=== PATIENT | male | born 1960 | race Caucasian/White ===

== ENCOUNTER 2018-08-12 11:13 | Emergency (ER) | payer OTHER, SELFPAY ==
[2018-08-12 11:18] VITALS: BP 138/83; PULSE 52; RESP 16; TEMP 36.6; O2SAT 95
--- NOTE | 2018-08-12 11:28 | DI.RAD_ITS ---
SYMPTOM/DIAGNOSIS: POSSIBLE CHICKEN BONE IN THROAT, PAIN SOFT TISSUE NECK: Two views were obtained. The tracheal laryngeal air column is unremarkable. A tiny curvilinear calcification is noted at the level of the thyroid cartilage and was seen on CT to in fact represent cartilaginous calcification. No foreign body identified.
--- NOTE | 2018-08-12 11:39 | ED.GENADUL_ITS ---
Discharge Plan Disposition Patient Disposition: HOME Condition: Stable Discharge Details Chief Complaint: ThroatFB Clinical Impression: History of swallowed foreign body Primary Care Provider: Shikha,Local ED Provider: Tiffani Schreiber Home Meds and New Rx's Prescriptions: Continued atorvastatin 10 mg Tablet 10 mg PO DAILY RF: 0 Discharge Instructions Instructions: Foreign Body Ingestion (ED), Neck Pain (ED) Additional Instructions: Avoid hot fluids and foods for the next few days while symptoms still present. Follow a diet of soft and cool fluids and foods for the next few days while symptoms still present. Alternate Tylenol and Motrin as needed and directed for pain. Follow-up with your primary care doctor next week for reevaluation as needed. Return immediately to the emergency department if you develop any worsening or new concerning symptoms. Discharge Data Discharge Date/Time-TO BE ENTERED AT DEPARTURE: 08/12/18 14:10 Discharge Physician: Tiffani Schreiber Medical Decision Making 57yo M w/ c/o chicken bone lodged in throat since last night. Ate breakfast this am and felt it dislodged to R side but still with pain mainly on L side. No fever, vomiting, chest pain, sob, or abdominal pain. Vitals within normal limits. Patient appears nontoxic. He is speaking in full sentences. No signs of airway compromise. He is swallowing his own secretions. No foreign body noted in posterior pharynx. No tenderness to palpation of neck. Abdomen soft and nontender. We will send for neck soft tissue x-ray, give a dose of ibuprofen and try carbonated beverage. If no relief can try effervescent granules and if needed will discuss with surgery. 1250 --soft tissue x-ray neck notes a 7 mm linear density projecting over posterior aspect of the thyroid cartilage could be physiologic calcification but foreign body cannot be excluded. Discussed with surgery, agrees with plan for CT neck for further evaluation. 1340 --CT negative for any foreign body. Patient states pain is resolving. Discussed that this could have been possibly a scratch or irritation due to food causing inflammation and pain. Patient has been reading a magazine and appears in no acute distress. Patient feels good to go home at this time. He is instructed to alternate Tylenol and Motrin, and refrain from hot fluids or foods for the next few days and mainly follow a diet of cool liquids and soft foods over the next few days while symptoms still present. He is instructed to follow-up with a primary care doctor for reevaluation and to return anytime if worse. Imaging Data Radiologic Study: Radiologist's impression: XR Soft Tissue Neck EXAM DATE/TIME: 08/12/2018 11:31 AM CLINICAL HISTORY: 57 years old, male; Other: Possible chicken bone stuck in throat; Additional info: Pain in L side of throat TECHNIQUE: Imaging protocol: XR of the soft tissues of the neck. COMPARISON: No relevant prior studies available. FINDINGS: Airway: Normal. No abnormal narrowing. Soft tissues: The lateral view demonstrates a 7 mm linear density in the soft tissues projecting over the posterior aspect of the thyroid cartilage at the level of the inferior endplate of C5. The hyoid bone is unremarkable. The epiglottis is normal in configuration.The prevertebral soft tissues are normal. Bones/joints: Normal for age. IMPRESSION: 1. 7 mm linear density projecting over the posterior aspect of the thyroid cartilage. Although this could represent a physiologic calcification at the level of the larynx, a linear foreign body is not excludable. 2. Soft tissues are otherwise unremarkable. Remainder of non-emergent findings as described above. CT Neck Without Contrast EXAM DATE/TIME: 08/12/2018 1:00 PM CLINICAL HISTORY: 57 years old, male; Other: Foreign body in nec; Patient HX: Swallowed chicken bone, pain left neck TECHNIQUE: Imaging protocol: Axial computed tomography images of the neck without contrast. Coronal and sagittal reformatted images were created and reviewed. Radiation optimization: All CT scans at this facility use at least one of these dose optimization techniques: automated exposure control; mA and/or kV adjustment per patient size (includes targeted exams where dose is matched to clinical indication); or iterative reconstruction. COMPARISON: [place] XR soft tissue neck 08/12/2018 11:59 AM FINDINGS: Nasopharynx: Normal. Oropharynx: Normal. No significant tonsillar enlargement. Hypopharynx: Normal. Larynx: No evidence of a radiopaque foreign body. There is mild asymmetry in the ossification of the arytenoid cartilages with slight increased calcification in the left arytenoid in comparison to the right (34/3, 17/5, 26/6). The linear opacity seen in the x-ray corresponds to cortical calcification in the left thyroid cartilage. Retropharyngeal space: Normal. Submandibular/Parotid glands: Normal. Glands are normal in size. Thyroid: Normal. No enlarged or calcified nodules. Lymph nodes: Normal. No lymphadenopathy. Trachea: Visualized trachea is unremarkable. Esophagus: The visualized esophagus is unremarkable. Lungs: Normal as visualized. Bones/joints: No acute fracture. 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 Soft tissues: There is no evidence of a radiopaque foreign body. IMPRESSION: No evidence of a radiopaque foreign body. The linear opacity seen in the soft tissue neck x-ray corresponds to cortical calcification in the left thyroid cartilage. Remainder of non-emergent findings as described above. HPI General Mode of arrival: ambulatory . Date/Time Provider Initiated Documentation: 08/12/18 11:18 . Limitations to Documentation: no limitations . Information obtained by: patient . HPI Narrative: Pt is a 57yo M who presents to the ED w/ a c/o pain in throat and neck since he thinks he swallowed a chicken bone last night. Pt states this morning he was able to eat an egg frittata and thinks that the pain has moved from the left side of his throat to the right side. He states the pain on the right side has since resolved but still has pain in the left side which is worse with swallowing. States he is concerned about retained chicken bone. He denies any fever, vomiting, chest pain, shortness of breath or abdominal pain. Related Data Home Medications Medication Instructions Recorded Confirmed atorvastatin 10 mg PO DAILY 08/12/18 08/12/18 Allergies Allergy/AdvReac Type Severity Reaction Status Date / Time No Known Allergies Allergy Unverified 08/12/18 11:21 General Stated Complaint: ThroatFB JORGE A: 2 Review of Systems Review of Systems All systems reviewed & are unremarkable except as noted in HPI and below Constitutional Reports as per HPI, Denies chills and Denies fever(s) Eyes Denies blurry vision ENT Denies dizziness, Reports neck pain, Denies sore throat and Denies throat swelling Cardiovascular Denies chest pain and Denies dyspnea Respiratory Denies cough and Denies dyspnea Gastrointestinal Denies abdominal pain, Denies diarrhea and Denies vomiting Genitourinary Denies hematuria and Denies dysuria Musculoskeletal Denies back pain, Reports neck pain and Denies numbness Integumentary/Breasts Denies lesions and Denies rash Neurologic Denies dizziness, Denies focal weakness and Denies numbness Allergic/Immunologic Denies throat swelling FOR[facility]LY [facility], [facility] Medical History Cold-induced asthma (Acute) Hx of hyperlipidemia (Acute) Surgical History H/O thumb surgery (Acute) S/P left knee surgery (Acute) History of tonsillectomy (Chronic) Social History Smoking/Tobacco Use Status: Never Alcohol Intake: current Alcohol Intake frequency: a few times a month Drug use: Never Do you feel safe at home: Yes Do you feel safe in your relationship?: Yes Exam Const General: cooperative, healthy appearing, comfortable and no acute distress HENMT Head: normal to inspection Ears: hearing grossly normal bilaterally, external ears normal and TM's normal bilaterally General nose exam: external nose normal Face and sinus: normal facial exam Mouth: oral mucosae normal Teeth and gingiva: dentition normal Throat: posterior oropharynx normal, tonsils normal, uvula midline and no peritonsillar masses Eyes General: appearance normal, both eyes and all related structures Pupils: PERRL EOM: EOM intact bilaterally Neck Neck: normal visual inspection, trachea midline, supple, no anterior neck swelling, no midline deformity, nontender and No submandibular swelling Lymphatic: no lymphadenopathy noted Chest Chest: normal inspection of the chest and no tenderness Resp Effort & Inspection: normal respiratory effort and able to speak in complete sentences Auscultation: clear to auscultation bilaterally Cardio Rate: regular rate Rhythm: regular rhythm GI Inspection: normal to inspection Palpation: soft, not firm, not rigid and nontender Auscultation: normal bowel sounds Skin General skin exam: no rashes or lesions noted Neuro General: alert, awake and oriented x3 Cognition: normal cognition Speech: speech normal Motor: muscle tone normal throughout Sensory Exam: no sensory deficits noted Extrem General: normal to inspection, full ROM, normal capillary refill, no calf tenderness bilaterally and no edema Psych Appearance: grossly normal Mental Status: mental status grossly normal Speech and Movement: speech and movement normal Affect: normal affect Course Vital Signs Temperature 97.9 F 08/12/18 11:18 Pulse 52 L 08/12/18 11:18 Respiratory Rate 16 08/12/18 11:18 Blood Pressure 138/83 08/12/18 11:18 Pulse Oximetry 95 08/12/18 11:18 Temperature 97.9 F 08/12/18 11:18 Temperature Source Temporal Artery Scan 08/12/18 11:18 Pulse 52 L 08/12/18 11:18 Respiratory Rate 16 08/12/18 11:18 Respiratory Effort Non-Labored 08/12/18 11:24 Respiratory Pattern Normal 08/12/18 11:24 Blood Pressure 138/83 08/12/18 11:18 Blood Pressure Position Sitting 08/12/18 11:18 Pulse Oximetry 95 08/12/18 11:18 Oxygen Delivery Method Room Air 08/12/18 11:18 Oxygen Flow Rate 0 08/12/18 11:18 Pain Level 3 08/12/18 11:18
[2018-08-12] MEDS: Ibuprofen 600 MG TAB PO (11:43)
--- NOTE | 2018-08-12 12:41 | DI.VRAD_ITS ---
EXAM: XR Soft Tissue Neck EXAM DATE/TIME: 08/12/2018 11:31 AM CLINICAL HISTORY: 57 years old, male; Other: Possible chicken bone stuck in throat; Additional info: Pain in L side of throat TECHNIQUE: Imaging protocol: XR of the soft tissues of the neck. COMPARISON: No relevant prior studies available. FINDINGS: Airway: Normal. No abnormal narrowing. Soft tissues: The lateral view demonstrates a 7 mm linear density in the soft tissues projecting over the posterior aspect of the thyroid cartilage at the level of the inferior endplate of C5. The hyoid bone is unremarkable. The epiglottis is normal in configuration.The prevertebral soft tissues are normal. Bones/joints: Normal for age. IMPRESSION: 1. 7 mm linear density projecting over the posterior aspect of the thyroid cartilage. Although this could represent a physiologic calcification at the level of the larynx, a linear foreign body is not excludable. 2. Soft tissues are otherwise unremarkable. Remainder of non-emergent findings as described above. THIS REPORT CONTAINS FINDINGS THAT MAY BE CRITICAL TO PATIENT CARE. The findings were verbally communicated via telephone conference with 08/12/2018 12:36 PM EDT. The findings were acknowledged and understood. Dictated and Authenticated by: Christie Morocho MD. Ordering:JERSON Nixon MD
--- NOTE | 2018-08-12 13:29 | DI.CT_ITS ---
SYMPTOM/DIAGNOSIS: ? FOREIGN BODY CERVICAL CT: CT examination of the cervical region was performed without contrast administration. A questionable calcification seen on radiographs of the neck corresponds to a portion of the calcified thyroid cartilage. No foreign body identified. No free air is seen. No retropharyngeal mass is seen. No adenopathy is seen. CONCLUSION: No evidence of radiopaque foreign body in the cervical region.
--- NOTE | 2018-08-12 13:43 | DI.VRAD_ITS ---
EXAM: CT Neck Without Contrast EXAM DATE/TIME: 08/12/2018 1:00 PM CLINICAL HISTORY: 57 years old, male; Other: Foreign body in nec; Patient HX: Swallowed chicken bone, pain left neck TECHNIQUE: Imaging protocol: Axial computed tomography images of the neck without contrast. Coronal and sagittal reformatted images were created and reviewed. Radiation optimization: All CT scans at this facility use at least one of these dose optimization techniques: automated exposure control; mA and/or kV adjustment per patient size (includes targeted exams where dose is matched to clinical indication); or iterative reconstruction. COMPARISON: [place] XR soft tissue neck 08/12/2018 11:59 AM FINDINGS: Nasopharynx: Normal. Oropharynx: Normal. No significant tonsillar enlargement. Hypopharynx: Normal. Larynx: No evidence of a radiopaque foreign body. There is mild asymmetry in the ossification of the arytenoid cartilages with slight increased calcification in the left arytenoid in comparison to the right (34/3, 17/5, 26/6). The linear opacity seen in the x-ray corresponds to cortical calcification in the left thyroid cartilage. Retropharyngeal space: Normal. Submandibular/Parotid glands: Normal. Glands are normal in size. Thyroid: Normal. No enlarged or calcified nodules. Lymph nodes: Normal. No lymphadenopathy. Trachea: Visualized trachea is unremarkable. Esophagus: The visualized esophagus is unremarkable. Lungs: Normal as visualized. Bones/joints: No acute fracture. 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 Soft tissues: There is no evidence of a radiopaque foreign body. IMPRESSION: No evidence of a radiopaque foreign body. The linear opacity seen in the soft tissue neck x-ray corresponds to cortical calcification in the left thyroid cartilage. Remainder of non-emergent findings as described above. Dictated and Authenticated by: Christie Morocho MD. Ordering:JERSON Nixon MD
[2018-08-12 14:13] VITALS: BP 136/84; PULSE 50; RESP 16; O2SAT 97
== END 2018-08-12 14:10 | disposition home or self-care (01) ==
PROVIDERS: Emergency Provider Physician Assistant
DX: T17.228A Food in pharynx causing other injury, initial encounter (principal)
CPT/HCPCS: 99284; 70360; 70490